=== PATIENT | female | born 1955 | race Caucasian/White ===

== ENCOUNTER 2019-12-26 08:00 | Inpatient (IN) | payer OTHER ==
[~2019-12-26] VITALS: Ht 167.6 cm; Wt 106.6 kg
[~2019-12-26 08:00] MED LIST: DAFLONEX 600 MG1 TAB PO; DALMANE30 MG PO; DICLOFENAC SODI25 MG PO; FOLIC ACID0.4 MG; HYZAAR 100-251 EACH; LASIX20 MG PO; LEVAQUIN750 MG PO; RELAFEN500 MG PO; SEROQUEL200 MG PO; XANAX1 MG PO
[2019-12-26] MEDS ORDERED: PAXIL20 MG PO (09:09)
[2019-12-26] MEDS ORDERED: GABAPENTIN800 M1 PO (09:10)
[2019-12-26] MEDS ORDERED: AVAPRO150 MG PO (09:11)
[2019-12-26] MEDS ORDERED: PROTONIX20 MG PO (09:11)
[2019-12-26] MEDS ORDERED: PRILOSEC OTC20 MG PO (09:11)
[2019-12-26] MEDS ORDERED: FIORICET (09:12)
[2019-12-26] MEDS ORDERED: TRAM1TAB98 PO (09:12)
[2019-12-26] MEDS ORDERED: FLEXERIL (09:13)
[2020-01-01] MEDS ORDERED: ESGIC CAPSULE1 EACH PO (15:46)
[2020-01-01] MEDS ORDERED: CYCLOBENZAPRINE10 MG PO (15:47)
[2020-01-01] MEDS ORDERED: ACETAMINOPHEN (15:52)
[2020-01-01] MEDS ORDERED: TRAMADOL (15:52)
[2020-01-01] MEDS ORDERED: CAFFEINE (15:52)
[2020-01-01] MEDS ORDERED: BUTALBITAL (15:52)
[2020-01-03] MEDS ORDERED: ELIQUIS2.5 MG PO (13:58)
[2020-01-03] MEDS ORDERED: DUI500 PO (13:58)
[2020-01-03] MEDS ORDERED: PERCOCET 5-3251 EACH PO (13:58)
[2020-01-04] MEDS ORDERED: PERCOCET 5-3251 EACH PO (07:58)
[2020-01-04] MEDS ORDERED: ELIQUIS2.5 MG PO (07:58)
== END 2020-01-04 12:22 | DRG 470 ==
LOC: SURH 01-01 06:40 → O/R 01-01 06:40 → SURG 01-01 06:40 → SURH 01-01 08:00 → O/R 01-01 08:00 → SURH 01-01 10:00 → SURG 01-02 22:44
PROVIDERS: ADMIT Orthopaedic Surgery; ATTEND Orthopaedic Surgery
PROC: 0MNP0ZZ Release Left Knee Bursa and Ligament, Open Approach (ICD-10-PCS; 2020-01-01)
PROC: 0SRD0J9 Replacement of Left Knee Joint with Synthetic Substitute, Cemented, Open Approach (ICD-10-PCS; principal; 2020-01-01 10:00)
DX: M17.12 Unilateral primary osteoarthritis, left knee (principal); M22.12 Recurrent subluxation of patella, left knee; I10 Essential (primary) hypertension; D64.9 Anemia, unspecified